=== PATIENT | female | born 1980 | race Caucasian/White ===

== ENCOUNTER 2017-08-18 14:36 | Observation (INO) | payer OTHER, MEDICAID ==
[~2017-08-18] VITALS: Ht 177.8 cm; Wt 82.0 kg
[~2017-08-18 14:36] MED LIST: ATOR10TA15 PO; DAPA1TAB PO; DICY10 PO; METF500T PO; OMEP40CA2 PO; ZOFR4TAB3 SL
[2017-08-18] MEDS ORDERED: ONDANSETRON HCL 4 MG/2 ML VIAL IV PUSH PRN (19:15)
[2017-08-18] MEDS: ACETAMINOPHEN 500 MG CPLT PO PRN (19:53)
[2017-08-18 19:54] VITALS: BP 129/74; PULSE 68; RESP 18; TEMP 97.9; O2SAT 97
[2017-08-18] MEDS ORDERED: PLEASE DISCONTINUE PREVIOUS SUPPLEMENTAL SCALE INSULIN ORDERS ONE (21:15)
[2017-08-18] MEDS ORDERED: DEXTROSE 50% IN WATER 50 ML VIAL(D50) IV PUSH PRN (21:15)
[2017-08-18] MEDS ORDERED: GLUCAGON 1 MG/ML VIAL OTHER PRN (21:15)
[2017-08-18 22:04] VITALS: PULSE 94
[2017-08-18] MEDS: LOW DOSE INSULIN NOVOLOG SUPPLEMENTAL SCALE SQ SCH (22:13)
[2017-08-18 23:22] VITALS: BP 117/72; PULSE 71; RESP 18; TEMP 98.4; O2SAT 98
[2017-08-19] MEDS: ACETAMINOPHEN 500 MG CPLT PO PRN (00:03)
[2017-08-19 00:11] VITALS: PULSE 75
[2017-08-19 03:10] VITALS: BP 114/59; PULSE 76; RESP 16; TEMP 98.4; O2SAT 98
[2017-08-19 03:59] VITALS: PULSE 77
[2017-08-19 07:19] VITALS: BP 117/78; PULSE 88; RESP 18; TEMP 98; O2SAT 98
[2017-08-19 08:00] VITALS: PULSE 65
--- NOTE | 2017-08-19 08:00 | HHI.HP ---
HPI Primary Care Physician No Primary Care Physician Chief Complaint Chest pain History of Present Illness This is a 36-year-old female that presents to ED in [place] for evaluation of chest discomfort and was subsequently transferred to chest pain center via [facility]. Has history of diabetes since age 24 and hyperlipidemia. States that she developed a central chest tightness early yesterday morning while becoming involved in a very stressful situation with her 16-year-old son. States that her entire face became tingly but more so in the lips. She had her drive her to the hospital immediately. Rates the discomfort as an 8 out of 10. States symptoms resolved in about 30 minutes. Discomfort did not radiate. Denies shortness of breath but states she was breathing fast. States that she felt better when she was able to slow her breathing down. Denies nausea or diaphoresis. Has not had this before. Cannot recall ever having cardiac evaluation. Denies recent illness. Denies fevers or chills. Denies recent travel. Denies calf pain or swelling. Denies . Review of Systems General: Patient denies fevers, chills recent, and recent travel HEENT: Patient denies headache, sore throat, difficulty swallowing. Cardiovascular: Has the chest discomfort as mentioned above. Denies sensation of heart beating rapidly or irregularly. No syncope. Denies diaphoresis. Respiratory: States she was breathing rapidly. Denies shortness of breath or inspirational chest discomfort. Denies coughing wheezing or hemoptysis. GI: Patient denies nausea, vomiting, diarrhea, abdominal pain, bloody stools. Musculoskeletal: Patient denies joint pain or edema. Denies calf pain or edema. Neurovascular: Had tingling in her face more so around her lips. Patient denies numbness, tingling, weakness in extremities. Denies headache. Endocrine: Denies polyuria and polydipsia. Hematologic: Denies easy bruising. Skin: Denies rash or itching. Past Family Social History Allergies: Coded Allergies: No Known Allergies (Unverified Allergy, Unknown, 08/18/17) Past Medical History Diabetes diagnosed age 24. States her blood sugars at home generally run around 150 but will go higher when she stressed out. Hyperlipidemia, GERD, ovarian cyst, and kidney stones. Denies hypertension and CAD. Past Surgical History Kidney stone. Uterine ablation. Reported Medications Reported Meds & Active Scripts Active Reported Atorvastatin (Atorvastatin Calcium) 10 Mg Tab 10 Mg PO HS Omeprazole 40 Mg Cap 40 Mg PO DAILY Metformin (Metformin HCl) 500 Mg Tab 500 Mg PO BIDPC With meals Active Ordered Medications Current Medications Medications (Trade) Dose Ordered Sig/Mayela Route Start Time Stop Time Status Last Admin (Tylenol) 500 mg Q4H PRN PO 08/18/17 19:15 08/19/17 00:03 (Zofran Inj) 4 mg Q6H PRN IV PUSH 08/18/17 19:15 (D50w (Vial) Inj) 50 ml UNSCH PRN IV PUSH 08/18/17 21:15 (Glucagon Inj) 1 mg UNSCH PRN OTHER 08/18/17 21:15 (NovoLOG SUPPLEMENTAL SCALE) 1 ACHS SLIDING SCALE SQ 08/18/17 21:41 08/18/17 22:13 Family History Denies family history of CAD. Social History Lifetime nonsmoker. Rarely has alcohol. Denies illicit drugs. 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 She has been for 18 years. Physical Exam Vital Signs Vital Signs Date Time Temp Pulse Resp B/P (MAP) Pulse Ox O2 Delivery O2 Flow Rate FiO2 08/19/17 07:19 98.0 88 18 117/78 (91) 98 08/19/17 03:59 77 08/19/17 03:10 98.4 76 16 114/59 (77) 98 08/19/17 00:11 75 08/18/17 23:22 98.4 71 18 117/72 (87) 98 08/18/17 22:04 94 08/18/17 19:54 97.9 68 18 129/74 (92) 97 08/18/17 19:49 Physical Exam GENERAL: This is a well-nourished, well-developed patient, in no apparent distress. Patient speaks in clear complete sentences. Patient is pleasant. HEENT: Head is atraumatic and normocephalic. Neck is supple without lymphadenopathy and trachea is midline. No JVD or carotid bruits. CARDIOVASCULAR: Regular rate and rhythm without murmurs, gallops, or rubs. RESPIRATORY: Clear to auscultation. Breath sounds equal bilaterally. No wheezes , rales, or rhonchi. Chest wall is nontender. No use of accessory muscles. GASTROINTESTINAL: Abdomen is nontender, nondistended. Abdomen soft. No obvious pulsatile mass or bruit. No CVA tenderness. Strong femoral pulses bilaterally. Normal bowel sounds in all quadrants. MUSCULOSKELETAL: Patient is moving upper and lower extremities freely. No calf tenderness or edema, no Homans sign. Strong pulses in upper and lower extremities. NEUROLOGICAL: Patient is alert and oriented. Cranial nerves 2-12 are grossly intact. No focal deficits and speech is clear. SKIN: No rash and turgor is normal. Imaging Chest x-ray read by radiologist as nothing acute. Course EKGs have sinus tachycardia to sinus rhythm without significant ST segment depressions or elevations. Caprini VTE Risk Assessment Caprini VTE Risk Assessment: No/Low Risk (score <= 1) Caprini Risk Assessment Model Point Value = 1 Point Value = 2 Point Value = 3 Point Value = 5 Age 41-60 Minor surgery BMI > 25 kg/m2 Swollen legs Varicose veins or History of unexplained or recurrent spontaneous Oral contraceptives or hormone replacement Sepsis (< 1 month) Serious lung disease, including pneumonia (< 1 month) Abnormal pulmonary function Acute myocardial infarction Congestive heart failure (< 1 month) History of inflammatory bowel disease Medical patient at bed rest Age 61-74 Arthroscopic surgery Major open surgery (> 45 min) Laparoscopic surgery (> 45 min) Malignancy Confined to bed (> 72 hours) Immobilizing plaster cast Central venous access Age >= 75 History of VTE Family history of VTE Factor V Leiden Prothrombin [id number] Lupus anticoagulant Anticardiolipin antibodies Elevated serum homocysteine Heparin-induced thrombocytopenia Other congenital or acquired thrombophilia Stroke (< 1 month) Elective arthroplasty Hip, pelvis, or leg fracture Acute spinal cord injury (< 1 month) Prophylaxis Regimen Total Risk Factor Score Risk Level Prophylaxis Regimen 0-1 Low Early ambulation 2 Moderate Order ONE of the following: *Sequential Compression Device (SCD) *Heparin 5000 units SQ BID 3-4 Higher Order ONE of the following medications: *Heparin 5000 units SQ TID *Enoxaparin/Lovenox 40 mg SQ daily (WT < 150 kg, CrCl > 30 mL/min) *Enoxaparin/Lovenox 30 mg SQ daily (WT < 150 kg, CrCl > 10-29 mL/min) *Enoxaparin/Lovenox 30 mg SQ BID (WT < 150 kg, CrCl > 30 mL/min) AND/OR *Sequential Compression Device (SCD) 5 or more Highest Order ONE of the following medications: *Heparin 5000 units SQ TID (Preferred with Epidurals) *Enoxaparin/Lovenox 40 mg SQ daily (WT < 150 kg, CrCl > 30 mL/min) *Enoxaparin/Lovenox 30 mg SQ daily (WT < 150 kg, CrCl > 10-29 mL/min) *Enoxaparin/Lovenox 30 mg SQ BID (WT < 150 kg, CrCl > 30 mL/min) AND *Sequential Compression Device (SCD) Assessment and Plan Assessment and Plan * Chest pain: Patient has had serial cardiac enzymes and EKGs for ruling out purposes. She will be evaluated by Dr. Gonzalez of cardiology and the chest pain center and will likely undergo a Paco protocol ETT. She'll be discharged home if her stress test is nonischemic with instructions to follow-up with her PCP. Return to ED for interval issues. * Diabetes: She was hyperglycemic upon arrival to ED. Blood sugars have improved with insulin. She should resume her medication. Follow diabetic diet. Patient also should discuss being on ABILIO inhibitor with her primary care physician. Her blood pressures are normal however she should be on ABILIO inhibitor for renal protection with her history of diabetes. She should discuss with her physician as she may have a contraindication for this. * Hyperlipidemia: Continue current medication. * GERD: Continue medication. Patient is stable this time. She is agreeable to this plan. Frank Baxter Aug 19, 2017 08:00
[2017-08-19] MEDS: LOW DOSE INSULIN NOVOLOG SUPPLEMENTAL SCALE SQ SCH (09:53)
--- NOTE | 2017-08-19 10:38 | HHI.DCPOC ---
Discharge Care Plan Diagnosis: (1) Chest pain (2) DM (diabetes mellitus) (3) Hyperlipidemia Goals to Promote Your Health NEED TO DISCUSS YOUR MEDICATIONS WITH YOUR PRIMARY CARE DOCTOR. YOU COULD BENEFIT FROM AN ABILIO INHIBITOR (TYPE OF BLOOD PRESSURE MEDICATION THAT PROTECTS YOUR KIDNEYS WHEN YOU HAVE DIABETES.) * To prevent worsening of your condition and complications * To maintain your health at the optimal level Directions to Meet Your Goals Take your medications as prescribed Follow your dietary instruction Follow activity as directed Keep your appointments as scheduled Take your immunizations and boosters as scheduled If your symptoms worsen call your PCP, if no PCP go to Urgent Care Center or Emergency Room Smoking is Dangerous to Your Health. Avoid second hand smoke Call the 24-hour hour crisis hotline for domestic abuse at Frank Baxter Aug 19, 2017 10:38
--- NOTE | 2017-08-19 14:39 | TR ---
Date Performed: 08/19/2017 Time Performed: 08:31:42 DOCTOR: Liban Gonzalez DRUG LIST: CLINICAL HISTORY: REASON FOR TEST: Chest pain REASON FOR ENDING: OBSERVATION: CONCLUSION: PIERRE PROTOCOL. NO CP. TEST STOPPED AFTER EXCEEDING GOAL HR SECONDARY TO SOB AND LEG FATIGUE.Maximum SJ=095 % Max HR Achieved=89.0% Maximum YB=046/84 Total Exercise Time=6:00 COMMENTS: Patient exercised using the Pierre protocol. No electrocardiographic changes were seen to suggest ischemia. Hemodynamic response to exercise was normal. No significant arrhythmia was prese nt.
== END 2017-08-19 11:10 | disposition home or self-care (01) ==
LOC: NEDDLT 18:44 → NEPGCP 18:54 → UNDOADMOB 18:54 → UNDODISOB 08-19 11:10
PROVIDERS: ADMIT Internal Medicine Interventional Cardiology; ATTEND Internal Medicine Interventional Cardiology
DX: R07.89 Other chest pain (principal); E11.65 Type 2 diabetes mellitus with hyperglycemia; E78.5 Hyperlipidemia, unspecified; K21.9 Gastro-esophageal reflux disease without esophagitis; Z87.442 Personal history of urinary calculi; Z79.84 Long term (current) use of oral hypoglycemic drugs
CPT/HCPCS: 71010; 80048; 82550; 82947; 82948; 83735; 84484; 84702; 85025; 85379; 85610; 85730; 93005; 93017; G0378; J1815; J2270